=== PATIENT | female | born 1970 | race Asian ===

== ENCOUNTER 2017-10-15 09:17 | Emergency (ER) | payer MEDICAID ==
[~2017-10-15] VITALS: Ht 162.6 cm; Wt 50.0 kg
[~2017-10-15 09:17] MED LIST: CLIN-79 PO
[2017-10-15] MEDS ORDERED: BENZ-16 PO (10:26)
[2017-10-15] MEDS ORDERED: GUAI1TBM19 PO (10:26)
[2017-10-15 10:39] VITALS: BP 129/84
== END 2017-10-15 10:46 | disposition home or self-care (01) ==
LOC: ER 09:17
DX: J06.9 Acute upper respiratory infection, unspecified (principal); Z56.0 Unemployment, unspecified; Z79.899 Other long term (current) drug therapy
CPT/HCPCS: 71046; 99284

== ENCOUNTER 2024-03-10 11:45 | Emergency (ER) | payer MEDICAID ==
[~2024-03-10] VITALS: Ht 152.4 cm; Wt 57.5 kg
[~2024-03-10 11:45] MED LIST changes: +CLIN-214 PO; -CLIN-79 PO; +GUAI1TBM19 PO
[2024-03-10 11:53] VITALS: TEMP 97.6
[2024-03-10 12:26] LABS: BASOPHILS % (AUTO) 0.6 % (0-1); EOSINOPHILS # (AUTO) 0.1 X10'3 (0-0.9); EOSINOPHILS % (AUTO) 0.8 % (0-6); HEMATOCRIT 32.7 % (35.0-45.0); HEMOGLOBIN 10.4 g/dl (12.0-16.0); LYMPHOCYTES # (AUTO) 1.6 X10'3 (1.1-4.8); LYMPHOCYTES % (AUTO) 23.3 % (21-51); MEAN CORPUSCULAR HEMOGLOBIN 28.9 PG (27.0-31.0); MEAN CORPUSCULAR HGB CONC 31.8 g/dL (33.0-36.5); MEAN CORPUSCULAR VOLUME 90.8 FL (78-98); MEAN PLATELET VOLUME 7.6 FL (7.4-10.4); MONOCYTES # (AUTO) 0.6 X10'3 (0-0.9); MONOCYTES % (AUTO) 8.3 % (2-12); NEUTROPHILS # (AUTO) 4.7 X10'3 (1.8-7.7); PLATELET COUNT 470 X10'3 (140-440)
[2024-03-10 12:34] LABS: ALBUMIN 3.8 G/DL (3.4-5.0); ANION GAP 8 (8-16); BLOOD UREA NITROGEN 16 MG/DL (7-18); CALCIUM 8.7 MG/DL (8.5-10.1); CHLORIDE 105 MMOL/L (99-107); GLUCOSE 64 MG/DL (70-104); POTASSIUM 3.5 MMOL/L (3.5-5.1); SODIUM 140 MMOL/L (135-145); eCRCL 58 ML/MIN; eGFR 75 ML/MIN
[2024-03-10 14:20] VITALS: BP 130/74; PULSE 70; RESP 12; O2SAT 99
== END 2024-03-10 14:22 | disposition home or self-care (01) ==
LOC: ER 11:45
DX: N92.0 Excessive and frequent menstruation with regular cycle (principal); D64.9 Anemia, unspecified; Z79.2 Long term (current) use of antibiotics; Z79.899 Other long term (current) drug therapy
CPT/HCPCS: 36415; 76830; 76856; 80048; 85025; 93976; 99284